=== PATIENT | male | born 1955 ===

== ENCOUNTER 2018-05-07 06:25 | Day surgery (SDC) | payer BC ==
[~2018-05-07] VITALS: Ht 167.6 cm; Wt 77.1 kg
[2018-05-07] VITALS (7 sets, daily range): BP systolic 118–139; BP diastolic 71–85
[2018-05-07] MEDS ORDERED: LR 1000ml 1,000 ML IVLG SCH ×2 (07:00→07:58)
[2018-05-07] MEDS ORDERED: COZAAR50 MG ORAL (07:14)
[2018-05-07] MEDS ORDERED: JARDIANCE PO (07:14)
[2018-05-07] MEDS ORDERED: CRESTOR20 MG ORAL (07:14)
[2018-05-07] MEDS ORDERED: JANUMET XR 50-1 EACH ORAL (07:14)
--- NOTE | 2018-05-07 07:46 | Pre-Procedure Note/Attestation ---
Pre-Procedure Note/Attestation Complete Prior to Procedure Planned Procedure: not applicable Procedure Narrative: EGD/Colon Indications for Procedure Pre-Operative Diagnosis: abd pain, diverticulosis Attestation I attest that I discussed the nature of the procedure; its benefits; risks and complications; and alternatives (and the risks and benefits of such alternatives ), prior to the procedure, with the patient (or the patient's legal outbound call center representative). I attest that, if there was a reasonable possibility of needing a blood transfusion, the patient (or the patient's legal outbound call center representative) was given the [facility] standardized written summary, pursuant to the Todd Mccurtain Blood Safety Act ([place] Health and Safety Code # 1645, as amended). I attest that I re-evaluated the patient just prior to the surgery and that there has been no change in the patient's H&P, except as documented below: Dixie Ceballos MD May 07, 2018 07:46
--- NOTE | 2018-05-07 07:46 | Short Stay Surgery H&P ---
History of Present Illness History of Present Illness Chief Complaint See updated H&P in paper form HPI Zafar Valerio is a 63 year old male who was admitted on for Abdominal Pain, Colon Screening Patient History Allergies: Coded Allergies: No Known Allergies (Unverified , 05/07/18) Medication History Scheduled Losartan Potassium* (Cozaar*), 50 MG ORAL DAILY, (Reported) Rosuvastatin Calcium* (Crestor*), 20 MG ORAL DAILY, (Reported) Sitagliptin Phos/Metformin Hcl (Janumet Xr 50-500 Mg Tablet), 1 TAB ORAL DAILY, (Reported) [Jardiance], 10 MG PO DAILY, (Reported) Physical Exam Vital Signs Last Vital Signs Date Time Temp Pulse Resp B/P (MAP) Pulse Ox O2 Delivery O2 Flow Rate FiO2 05/07/18 07:10 Room Air 05/07/18 07:09 97.6 71 18 126/85 99 Plan Attestation Are the patient's medical conditions optimized for surgery? Dixie Ceballos MD May 07, 2018 07:46
--- NOTE | 2018-05-07 07:48 | Anethesia Preoperative Eval ---
Anesthesia Pre-op PMH/ROS General Date of Evaluation: May 07, 2018 Time of Evaluation: 07:44 Anesthesiologist: Kimberly ASA Score: ASA 2 Mallampati Score Class I : Soft palate, uvula, fauces, pillars visible Class II: Soft palate, uvula, fauces visible Class III: Soft palate, base of uvula visible Class IV: Only hard plate visible Mallampati Classification: Class II Surgeon: Kadeem Diagnosis: Abdominal pain Surgical Procedure: EGD Colonoscopy Anesthesia History: none Family History: no anesthesia problems Allergies: Coded Allergies: No Known Allergies (Unverified , 05/07/18) Medications: see eMAR Patient NPO?: Yes Past Medical History Cardiovascular: Denies: HTN, CAD, VT, valve dz, arrhythmia, other Pulmonary: Denies: asthma, COPD, LUIS FERNANDO, other Gastrointestinal/Genitourinary: Reports: GERD; Denies: CRI, ESRD, other Neurologic/Psychiatric: Denies: dementia, CVA, depression/anxiety, TIA, other Endocrine: Denies: DM, hypothyroidism, steroids, other HEENT: Denies: cataract (L), cataract (R), glaucoma, SENECA-CAYUGA (L), SENECA-CAYUGA (R), other Hematology/Immune: Denies: anemia, DVT, bleeding disorder, other Musculoskeletal/Integumentary: Denies: OA, RA, DJD, DDD, edema, other PMH Narrative: as above PSxH Narrative: see chart Anesthesia Pre-op Phys. Exam Physician Exam Last Vital Signs Date Time Temp Pulse Resp B/P (MAP) Pulse Ox O2 Delivery O2 Flow Rate FiO2 05/07/18 07:10 Room Air 05/07/18 07:09 97.6 71 18 126/85 99 Constitutional: NAD Neurologic: CN 2-12 intact Cardiovascular: RRR, no M/R/G Respiratory: CTA Gastrointestinal: S/NT/ND Airway Exam Mallampati Score: Class II MO: full Neck: flexible ROM: full Teeth: intact Dentures: no upper, no lower Anesthesia Pre-op A/P Labs see chart Risk Assessment & Plan Assessment: ASA 2 Plan: MAC Status Change Before Surgery: No Pre-Antibiotics Drug: none Dionte Harris MD May 07, 2018 07:48
[2018-05-07] MEDS ORDERED: Midazolam 2mg/2ml Inj ONE (08:00)
[2018-05-07] MEDS ORDERED: Propofol 200mg/20ml IV ONE (08:00)
[2018-05-07] MEDS ORDERED: fentaNYL 100 mcg/2 mL IV PRN (08:00)
[2018-05-07] MEDS ORDERED: LR 1000ml ONE (08:00)
--- NOTE | 2018-05-07 08:35 | Immediate Post-Op Evaluation ---
Immediate Post-Op Evalulation Immediate Post-Op Evalulation Procedure: EGD Colonoscopy Date of Evaluation: May 07, 2018 Time of Evaluation: 08:34 IV Fluids: 500 Blood Products: none Estimated Blood Loss: min Urinary Output: none Blood Pressure Systolic: 128 Blood Pressure Diastolic: 80 Pulse Rate: 78 Respiratory Rate: 20 O2 Sat by Pulse Oximetry: 98 Temperature (Fahrenheit): 97.7 Pain Score (1-10): 1 Nausea: No Vomiting: No Complications none Patient Status: reacts, patent, none Hydration Status: adequate Dionte Harris MD May 07, 2018 08:35
--- NOTE | 2018-05-07 08:36 | Endoscopy Procedure Note ---
Endoscopy Procedure Note General Indication for Procedure: abd pain Procedures Performed: EGD, colonoscopy Operative Findings/Diagnosis: small umbilicated antrum papules x 2, mod tics Pt Tolerated Procedure Well: Yes Estimated Blood Loss: none Anesthesia Anesthesiologist: Dr. Harris Anesthesia: MAC Medications Medication Given: see anesthesia record Inserted Devices Implant(s) used?: No GI Core Measures 50 yrs or older w/o bx or poly: Not Applicable 10yrs. F/U not recommended: Not Applicable If not recommended, why?: Dixie Ceballos MD May 07, 2018 08:36
--- NOTE | 2018-05-07 08:37 | Brief Operative Note ---
Immediate Post Operative Note Operative Note Chief Complaint: abd pain, tics Pre-op Diagnosis: abd pain, diverticulosis Procedure: egd/bx, colon Post-op Diagnosis: small umbilicated antrum papules x 2, mod tics Post-op Diagnosis: same as pre-op Surgeon: charles Anesthesiologist: tasia Anesthesia: MAC, moderate sedation Specimen: yes Complications: none Condition: stable Fluids: recorded Estimated Blood Loss: none Drains: none Implant(s) used?: No Dixie Ceballos MD May 07, 2018 08:37
--- NOTE | 2018-05-07 12:15 | Procedure Note ---
DATE OF PROCEDURE: 05/07/2018 GASTROENTEROLOGY PROCEDURE REPORT PROCEDURE: Upper gastrointestinal endoscopy with biopsy as well as colonoscopy. SURGEON: Dixie Ceballos M.D. ANESTHESIOLOGIST: Dionte Harris M.D. PRE-ENDOSCOPIC DIAGNOSIS: Abdominal pain with history of Helicobacter pylori gastritis and history of diverticulosis and diverticulitis. POST-ENDOSCOPIC DIAGNOSES: 1. Two shallow umbilicated papules in the antrum measuring approximately 5 to 7 mm each, status post biopsy, likely representing pancreatic rest tissues. 2. Status post random biopsies of normal antrum. 3. Moderate sigmoid diverticulosis with no evidence of colonic polyps. DESCRIPTION OF PROCEDURE: The procedure, its risks, indications, alternatives, and possible complications were explained to the patient and an informed consent was obtained. The patient was then sedated and a diagnostic upper endoscope was introduced through the oropharynx and advanced to the duodenum. The endoscope was then gradually withdrawn. The rectal exam was done and the colonoscope was introduced in the rectum and advanced to the cecum without difficulty. The cecum was identified by the appearance of the appendiceal orifice and ileocecal valve. The colonoscope was then gradually withdrawn and the mucosa examined carefully. Examination was concluded by the retroflexed view of the rectum. Findings and maneuvers were as listed above. The patient was left to recovery in good condition. COMPLICATIONS: None. RECOMMENDATIONS: 1. High-fiber diet. 2. Check and treat Helicobacter pylori if positive. 3. Outpatient followup. Dixie Ceballos M.D. DR: HEENA JOB#: [id number] CC: ALEX
[2018-05-08 07:35] VITALS: BP 132/64
--- NOTE | 2018-05-08 07:35 | 48 Hour Post Anesthesia Eval ---
Post Anesthesia Evaluation Procedure: EGD Colonoscopy Date of Evaluation: May 07, 2018 Time of Evaluation: 10:08 Blood Pressure Systolic: 132 0: 64 Pulse Rate: 72 Respiratory Rate: 20 Temperature (Fahrenheit): 97.5 O2 Sat by Pulse Oximetry: 98 Airway: patent Nausea: No Vomiting: No Pain Intensity: 1 Hydration Status: adequate Cardiopulmonary Status: stable Mental Status/LOC: patient returned to baseline Follow-up Care/Observations: n/a Post-Anesthesia Complications: none Follow-up care needed: ready to discharge Dionte Harris MD May 08, 2018 07:35
== END 2018-05-07 09:20 | disposition home or self-care (01) ==
LOC: GAS 06:25
DX: Z12.11 Encounter for screening for malignant neoplasm of colon (principal); K57.30 Diverticulosis of large intestine without perforation or abscess without bleeding; K29.50 Unspecified chronic gastritis without bleeding; K21.9 Gastro-esophageal reflux disease without esophagitis
CPT/HCPCS: 82962; 94003; 94150; J2250